=== PATIENT | female | born 1935 | race Caucasian/White ===

== ENCOUNTER 2022-02-24 15:22 | Outpatient (CLI) | payer MEDICARE | END 2022-02-24 15:23 | disposition home or self-care (01) | LOC: BICRAD 15:22 | PROVIDERS: ATTEND Student in an Organized Health Care Education/Training Program | DX: M25.512 Pain in left shoulder (principal); T84.018A Broken internal joint prosthesis, other site, initial encounter; Z96.612 Presence of left artificial shoulder joint ==

== ENCOUNTER 2022-04-08 14:06 | Outpatient (CLI) | payer MEDICARE | END 2022-04-08 14:07 | disposition home or self-care (01) | LOC: BICRAD 14:06 | PROVIDERS: ATTEND Student in an Organized Health Care Education/Training Program | DX: R06.02 Shortness of breath (principal) | CPT/HCPCS: 71046 ==

== ENCOUNTER 2022-04-16 08:43 | Outpatient (CLI) | payer MEDICARE | END 2022-04-16 08:44 | disposition home or self-care (01) | LOC: BICMAMMO 08:43 | PROVIDERS: ATTEND Student in an Organized Health Care Education/Training Program | DX: Z13.820 Encounter for screening for osteoporosis (principal); Z78.0 Asymptomatic menopausal state | CPT/HCPCS: 77080 ==